=== PATIENT | female | born 1995 | race African-American/Black ===

== ENCOUNTER 2016-08-24 19:35 | Inpatient (IN) ==
[2016-08-24 20:27] LABS: URINE SOURCE VOIDED
[2016-08-24 20:35] LABS: BILIRUBIN URINE NEGATIVE (NEGATIVE); BLOOD URINE TRACE (NEGATIVE); CLARITY CLEAR (CLEAR); COLOR YELLOW; GLUCOSE URINE NEGATIVE (NEGATIVE); LEUKOCYTES URINE 1+ (NEGATIVE); NITRITE URINE NEGATIVE (NEGATIVE); PROTEIN URINE TRACE mg/dL (NEGATIVE); UROBILINOGEN URINE NORMAL
[2016-08-24] MEDS ORDERED: DEMEROL IM ONE (21:04)
[2016-08-24] MEDS ORDERED: PHENERGAN IM ONE (21:04)
[2016-08-24] MEDS ORDERED: MAALOX PLUS LIQUID PO ONE (21:12)
[2016-08-25] MEDS ORDERED: REGLAN PO ONE (07:57)
[2016-08-25] MEDS ORDERED: PEPCID PO ONE (07:57)
[2016-08-25] MEDS ORDERED: LR 500 ML IV ONE (07:57)
[2016-08-25] MEDS ORDERED: KEFZOL 1 GM/D5W 1 GM/50 ML IVPB IV PRN (07:57)
[2016-08-25] MEDS: LR 1,000 ML IV SCH ×2 (08:10→08:53)
[2016-08-25 08:29] LABS: MANUAL DIFF NEEDED? NO
[2016-08-25] MEDS ORDERED: BICITRA PO ONE (08:30)
[2016-08-25] MEDS ORDERED: PEPCID IV ONE (08:30)
[2016-08-25 08:34] LABS: BASO% 0.4 % (0.0-0.8); EOS# 0.05 X1000 (0.0-0.7); EOS% 0.7 % (0.0-10.0); HEMATOCRIT 35.8 % (37.0-47.0); HEMOGLOBIN 12.7 g/dL (12.0-16.0); IMM GRAN# 0.04 X1000 (0.0-0.04); IMM GRAN% 0.6 % (0.0-0.5); LYMPH# 1.86 X1000 (1.2-3.4); LYMPH% 27.6 % (20.5-51.1); MCH 34.6 PG (27-31); MCHC 35.5 g/dL (33-37); MCV 97.5 FL (81-99); MONO# 0.84 X1000 (0.11-0.59); MONO% 12.4 % (1.7-9.3); MPV 10.1 FL (7.4-10.4); NEUT% 58.3 % (42.2-75.2); PLT 359 X1000 (130-400); RBC 3.67 XMIL (4.2-5.4)
[2016-08-25] MEDS ORDERED: DEMEROL IM PRN (08:42)
[2016-08-25] MEDS ORDERED: MYLICON PO PRN (08:42)
[2016-08-25] MEDS ORDERED: NORCO-5 PO PRN (08:42)
[2016-08-25] MEDS ORDERED: PITOCIN IM PRN (08:42)
[2016-08-25] MEDS ORDERED: DULCOLAX PR PRN (08:42)
[2016-08-25] MEDS ORDERED: HYDROXYZINE IM PRN (08:42)
[2016-08-25] MEDS ORDERED: PITOCIN 20 UNITS/LR 20 UNITS/1,000 ML IV.SOLN IV ONE (08:42)
[2016-08-25] MEDS ORDERED: AMBIEN PO PRN (08:42)
[2016-08-25] MEDS ORDERED: DEMEROL PO PRN ×2 (08:42)
[2016-08-25] MEDS ORDERED: CYTOTEC PO PRN (08:42)
[2016-08-25] MEDS ORDERED: HYDROXYZINE PO PRN (08:42)
[2016-08-25] MEDS ORDERED: M-M-R II VACCINE SUBQ ONE (08:42)
[2016-08-25] MEDS ORDERED: BOOSTRIX VACCINE IM ONE (08:42)
[2016-08-25] MEDS ORDERED: PHENERGAN IM PRN (08:42)
[2016-08-25] MEDS ORDERED: DURAMORPH ONE (08:47)
--- NOTE | 2016-08-25 09:06 | HISTORY AND PHYSICAL ---
HISTORY OF PRESENT ILLNESS: The patient is a 20-year-old female, 3, para 2-0-0-2 with an EDC of 09/06/2016. She has had 2 previous C-sections. She came in on the evening before with contractions and required pain medicine for relief. She is still having contractions the following morning. Cervix has changed somewhat, and therefore, she is admitted at this time for repeat for delivery. She denies any other difficulties. PAST MEDICAL HISTORY: Hypertension, depression, x2. MEDICINES: vitamins. ALLERGIES: None. PHYSICAL EXAMINATION: GENERAL: Well-developed female. HEENT: Benign. NECK: Supple. LUNGS: Clear. CARDIOVASCULAR: Regular rate and rhythm. ABDOMEN: Soft, nontender. EXTREMITIES: Without clubbing, cyanosis, or edema. ASSESSMENT AND PLAN: Term intrauterine , 2 previous C-sections, maribel. Admitted at this time for repeat for delivery. Risks were explained. cc: Malcolm Bolivar MD
[2016-08-25] MEDS ORDERED: ZOFRAN ONE (09:31)
[2016-08-25] MEDS ORDERED: NS 250 ML ONE (09:35)
[2016-08-25] MEDS ORDERED: NEO-SYNEPHRINE ONE (09:35)
[2016-08-25] MEDS ORDERED: PITOCIN 20 UNITS/LR 20 UNITS/1,000 ML IV.SOLN ONE (09:46)
[2016-08-25] MEDS ORDERED: TORADOL ONE (09:46)
--- NOTE | 2016-08-25 10:03 | OPERATIVE NOTE ---
PROCEDURE DATE : 08/25/2016 SURGEON: Malcolm Bolivar MD PREOPERATIVE DIAGNOSES: 1. Term intrauterine . 2. Previous section x2. 3. Labor. POSTOPERATIVE DIAGNOSES: 1. Term intrauterine . 2. Previous section x2. 3. Labor. PROCEDURE: Repeat low transverse section. ANESTHESIA: Spinal. FINDINGS: The patient had a female infant born, weight 5 pounds 9 ounces, Apgars were 9 and 10. DESCRIPTION OF OPERATION: The patient was taken to the operating room, given spinal anesthesia, given Ancef IV, and prepped and draped in a sterile fashion. A Harmon catheter was inserted in the bladder. Pump hose and stockings were placed. We made a Pfannenstiel skin incision, sharply dissected down to fascia. The fascia was dissected off the rectus muscle. The peritoneum was entered, we dissected down to create the bladder flap. A very thin lower segment was noted. Clear fluid was noted upon entering the amniotic sac. The infant was delivered using fundal pressure. The uterus was externalized and cleaned with a clean lap. The incision was closed with #1 chromic in a locking fashion. We put a [id number] on the right side for hemostasis. The uterus was put back in its anatomic position. Irrigation done, good hemostasis noted throughout. The rectus muscle was closed with #0 chromic suture. Hemostasis was maintained with Bovie. The fascia was closed with #1 Vicryl. The skin was closed with a 4-0 Biosyn. Estimated blood loss was 400 mL. Mother and infant are doing well. cc: Malcolm Bolivar MD
[2016-08-25] MEDS ORDERED: ZOFRAN IV PRN ×2 (10:08)
[2016-08-25] MEDS ORDERED: NARCAN INJ PRN (10:08)
[2016-08-25] MEDS ORDERED: ZOFRAN ODT PO PRN (10:08)
[2016-08-25] MEDS ORDERED: BENADRYL IV PRN (10:08)
[2016-08-25] MEDS: MYLICON PO SCH ×4 (10:23→21:55)
[2016-08-25] MEDS: MORPHINE IV PRN (13:39)
[2016-08-25] MEDS: PITOCIN 10 UNITS/LR 10 UNIT/1,000 ML IV.SOLN IV SCH ×2 (13:43→22:00)
[2016-08-25] MEDS: TORADOL IV PRN ×2 (16:27→21:55)
[2016-08-25] MEDS: PERICOLACE PO SCH (21:55)
[2016-08-26] MEDS: MORPHINE IV PRN ×2 (00:09→04:41)
[2016-08-26] MEDS: TORADOL IV PRN (04:41)
[2016-08-26 06:09] LABS: HEMATOCRIT 33.4 % (37.0-47.0); HEMOGLOBIN 11.5 g/dL (12.0-16.0); MCHC 34.4 g/dL (33-37); MCV 98.8 FL (81-99); MPV 10.4 FL (7.4-10.4); RBC 3.38 XMIL (4.2-5.4)
[2016-08-26] MEDS: PERCOCET-10 PO PRN ×3 (08:55→18:08)
[2016-08-26] MEDS: MYLICON PO SCH ×4 (08:55→20:49)
[2016-08-26] MEDS: MOTRIN PO PRN ×2 (13:06→20:49)
[2016-08-26] MEDS ORDERED: ZOFRAN ODT PO PRN (15:25)
[2016-08-26] MEDS: PERICOLACE PO SCH (20:49)
[2016-08-27] MEDS: PERCOCET-10 PO PRN ×2 (00:47→08:53)
[2016-08-27 05:02] VITALS: BP 133/75
[2016-08-27] MEDS: LR 1,000 ML IV SCH ×2 (05:02→15:21)
--- NOTE | 2016-08-27 08:39 | DISCHARGE SUMMARY ---
ADMISSION DATE: 08/25/2016 DISCHARGE DATE: 08/27/2016 ADMITTING DIAGNOSES: 1. Term . 2. Labor. 3. Previous section x 2. PRINCIPAL DIAGNOSES: 1. Term . 2. Labor. 3. Previous section x 2. PRINCIPAL PROCEDURE: Repeat . SUMMARY: Ms. Martínez is a 20-year-old 3, para 2, at term gestation. She had previously had 2 sections. She was admitted to the hospital having regular contractions. The decision is made to proceed with a repeat . This was performed by Dr. Bolivar on 08/25/2016. A female weighing 5 pounds and 9 ounces was born, Apgars of 9 at 1 minute and 10 at 5 minutes. There were no intraoperative complications. Postoperatively, the patient did well. She remained afebrile. All vital signs were stable. Her admission hemoglobin and hematocrit was 12.7/35.8. Discharge hemoglobin and hematocrit being 11.5/33.4. On the day of discharge, cardiac and pulmonary examinations normal. Bowel and bladder function was normal. Incision was clean and dry. She is having scant vaginal bleeding. Ms. Martínez will be discharged today. I will see her back in the office in a week. Routine discharge instructions, activity limitations, and precautions were discussed. cc: MD Malcolm Wlil MD
[2016-08-27] MEDS: MOTRIN PO PRN (08:52)
[2016-08-27] MEDS: MYLICON PO SCH ×2 (08:53→15:21)
== END 2016-08-27 10:45 | disposition home or self-care (01) ==
LOC: P.OPLD 19:35 → P.LD 19:37
PROVIDERS: ADMIT Obstetrics & Gynecology; ATTEND Obstetrics & Gynecology